=== PATIENT | male | born 1995 | race African-American/Black ===

== ENCOUNTER 2020-11-19 01:54 | Emergency (ER) | payer OTHER ==
[~2020-11-19] VITALS: Ht 182.9 cm; Wt 102.3 kg
--- NOTE | 2020-11-19 03:48 | REPVR ---
PROCEDURE INFORMATION: Exam: XR Left Foot Exam date and time: 11/19/20 (2:26am) Age: 25 years old Clinical indication: Fall. Injury / pain. TECHNIQUE: Imaging protocol: XR Left foot Views: 3 or more views COMPARISON: No relevant prior studies available FINDINGS: Bones/joints: No acute fracture nor dislocation. Perhaps pes planus. Soft tissues: Unremarkable. IMPRESSION: No acute findings. Pehaps pes planus (flat-footed). Electronically signed by: Allegra Brown On 11/19/2020 03:47:34 AM
[2020-11-19] MEDS ORDERED: IBUPROFEN 800 MG TAB PO ONE (06:15)
[2020-11-19 06:26] VITALS: BP 169/89
== END 2020-11-19 06:54 | disposition home or self-care (01) ==
LOC: M ED 01:54
DX: S93.602A Unspecified sprain of left foot, initial encounter (principal); W01.0XXA Fall on same level from slipping, tripping and stumbling without subsequent striking against object, initial encounter; Y92.410 Unspecified street and highway as the place of occurrence of the external cause; Y93.9 Activity, unspecified; Y99.9 Unspecified external cause status; M21.42 Flat foot [pes planus] (acquired), left foot; F17.200 Nicotine dependence, unspecified, uncomplicated

== ENCOUNTER 2021-02-05 08:53 | Emergency (ER) | payer OTHER ==
[~2021-02-05] VITALS: Ht 182.9 cm; Wt 116.2 kg
[2021-02-05 10:11] LABS: BASO % 0.5 % (0.0-1.0); EOS # 0.2 10^3/uL (0.0-0.5); EOS % 3.7 % (0.0-3.0); HEMATOCRIT 42.6 % (42.0-52.0); HEMOGLOBIN 13.3 g/dl (13.5-17.5); LYMPH # 1.6 10^3/uL (1.5-5.0); LYMPH % 25.2 % (24.0-44.0); MEAN CORPUSCULAR HEMOGLOBIN 29.7 pg (27.0-33.0); MEAN CORPUSCULAR HGB CONC 31.2 g/dl (32.0-36.5); MEAN CORPUSCULAR VOLUME 95.1 fl (80.0-96.0); MONO # 0.5 10^3/uL (0.0-0.8); MONO % 7.2 % (2.0-8.0); NEUTROPHILS # 4.1 10^3/uL (1.5-8.5); NEUTROPHILS % 63.1 % (36.0-66.0); PLATELET COUNT, AUTOMATED 334 10^3/uL (150-450); RED BLOOD COUNT 4.48 10^6/uL (4.30-6.10); WHITE BLOOD COUNT 6.5 10^3/uL (4.0-10.0)
[2021-02-05] MEDS ORDERED: CIPR-249 PO (10:53)
[2021-02-05] MEDS ORDERED: CIPR7.5D5 AS (10:53)
[2021-02-05 11:06] LABS: ERYTHROCYTE SEDIMENTATION RATE 7 mm/hr (0-15)
[2021-02-05 11:11] VITALS: BP 131/82
== END 2021-02-05 11:05 | disposition home or self-care (01) ==
LOC: M ED 08:53
DX: H61.892 Other specified disorders of left external ear (principal)

== ENCOUNTER 2022-05-06 12:37 | Emergency (ER) | payer OTHER ==
[~2022-05-06] VITALS: Ht 182.9 cm; Wt 79.1 kg
[~2022-05-06 12:37] MED LIST: CIPR-249 PO; CIPR7.5D5 AS
[2022-05-06] MEDS ORDERED: ALBU6.7H6 INH (12:57)
[2022-05-06] MEDS ORDERED: COMBIVENT RESPIMAT 100-20MCG INHALER 4GM INH STA (16:39)
[2022-05-06] MEDS ORDERED: predniSONE 20 MG TAB PO ONE (16:40)
[2022-05-06] MEDS ORDERED: MEDR4PAK PO (17:42)
[2022-05-06] MEDS ORDERED: VENTAER INH (17:42)
[2022-05-06 17:46] VITALS: BP 155/96
== END 2022-05-06 18:17 | disposition home or self-care (01) ==
LOC: M ED 12:37
DX: J45.901 Unspecified asthma with (acute) exacerbation (principal); F10.10 Alcohol abuse, uncomplicated; Z79.51 Long term (current) use of inhaled steroids; Z79.899 Other long term (current) drug therapy
CPT/HCPCS: 87428; 94640; 99283; J7512

== ENCOUNTER → 2024-04-20 | Outpatient (REF) ==
[~2024-04-20] MED LIST changes: +ALBU6.7H6 INH; +MEDR4PAK PO; +VENTAER INH
== END ==
LOC: M PLAIMG 10:37
PROVIDERS: ATTEND Internal Medicine
DX: M54.50 Low back pain, unspecified (principal); M25.561 Pain in right knee